=== PATIENT | female | born 1955 | race Caucasian/White ===

== ENCOUNTER 2019-12-21 15:42 | Outpatient (CLI) | payer BC, SELFPAY ==
[2019-12-21 16:53] LABS: Free T4 Free Thyroxine 0.78 ng/mL (0.78-2.19)
[2019-12-24 06:59] LABS: Triiodothyronine T3 Free 2.7 pg/mL (2.3-4.2)
== END 2019-12-21 15:43 | disposition home or self-care (01) ==
LOC: ANHLAB 15:46
PROVIDERS: PCP Physician Assistant Medical; Visit Provider Internal Medicine Endocrinology, Diabetes & Metabolism
DX: E06.3 Autoimmune thyroiditis (principal)
CPT/HCPCS: 36415; 84439; 84443; 84481

== ENCOUNTER 2020-01-01 10:59 | Outpatient (CLI) | payer BC, SELFPAY ==
--- NOTE | ~2020-01-01 | US_ITS ---
EXAMINATION: US thyroid DATE: 01/01/2020 11:43 INDICATION: Nontoxic single thyroid nodule. TECHNIQUE: Multiple ultrasound images of the thyroid were obtained. COMPARISON: 11/03/2018, 10/08/2017, 10/09/2016, 06/27/2015 and 07/12/2014 FINDINGS: The right thyroid lobe measures 3.9 x 1.6 x 1.2 cm. The left thyroid lobe measures 4.8 x 2.2 x 2.1 c m. No significant interval change since 2014 in a round 7 mm solid hypoechoic nodule at the right si de of the thyroid isthmus (TI-RADS 3, mildly suspicious , FNA if >=2.5 cm, annual followup is >1.5 cm ). There is larger wider than tall, well-defined solid isoechoic nodule without internal echogenic fo ci (TI-RADS 4, moderately suspicious , FNA if >=1.5 cm, annual followup is >1 cm) which measures 1.9 x 1.0 x 1.9 cm not significantly changed in size since 10/08/2017 at which time it measured 1.8 x 1.8 x 1.3 cm. Smaller similar-appearing solid nodule at the isthmus measuring 1.4 x 0.8 x 0.8 cm unchange d since 10/09/2016. In the left thyroid lobe there are a couple wider than tall, well-defined solid is oechoic nodule without echogenic foci measuring TI-RADS 4 measuring 2.2 cm in maximal diameter and 10 mm in maximal diameter. The larger is unchanged since the prior study with earlier biopsy on 4 demonstrating pathology consistent with benign follicular nodule . Similar appearing solid TI-RADS 4 nodule at the right thyroid measuring 1.5 cm in maximal diameter, decreased from 1.9 cm on 06/27/20 15 at which time it demonstrated a central cystic component. IMPRESSION: 1. Multiple stable thyroid nodules. Consider thyroid ultrasound in 2 years. Reviewed, dictated and finalized at location A. FING [facility]
== END 2020-01-01 11:00 | disposition home or self-care (01) ==
PROVIDERS: PCP Physician Assistant Medical; Visit Provider Internal Medicine Endocrinology, Diabetes & Metabolism
DX: E04.1 Nontoxic single thyroid nodule (principal)
CPT/HCPCS: 76536

== ENCOUNTER 2021-02-06 14:58 | Outpatient (CLI) | payer OTHER, SELFPAY ==
[2021-02-06 17:36] LABS: Free T4 Free Thyroxine 0.89 ng/mL (0.78-2.19)
== END 2021-02-06 14:59 | disposition home or self-care (01) ==
LOC: ANHWCLAB 15:01
PROVIDERS: PCP Physician Assistant Medical; Visit Provider Internal Medicine Endocrinology, Diabetes & Metabolism
DX: E04.1 Nontoxic single thyroid nodule (principal)
CPT/HCPCS: 36415; 84439; 84443

== ENCOUNTER 2022-02-09 09:19 | Outpatient (CLI) | payer OTHER, SELFPAY ==
[2022-02-09 17:02] LABS: Free T4 Free Thyroxine 1.06 ng/mL (0.78-2.19)
== END 2022-02-09 09:20 | disposition home or self-care (01) ==
LOC: ANHWCLAB 09:21
PROVIDERS: PCP Physician Assistant Medical; Visit Provider Internal Medicine Endocrinology, Diabetes & Metabolism
DX: E04.1 Nontoxic single thyroid nodule (principal); Z78.0 Asymptomatic menopausal state
CPT/HCPCS: 36415; 84439; 84443

== ENCOUNTER 2024-10-10 18:55 | Emergency (ER) | payer OTHER, MEDICARE, SELFPAY ==
--- NOTE | ~2024-10-10 | XR_ITS ---
XR humerus RT Ordering provider: Ruslan Stacy APRN History: . 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 Comparison: None. FINDINGS: BONES: No acute fracture or dislocation. JOINT SPACES: Osteoarthritic changes of the acromioclavicular joint. Glenohumeral joint is normal. SOFT TISSUES: Normal. IMPRESSION: No acute osseous abnormality right humerus. Reviewed, dictated and finalized at location A. COORDINATOR
--- NOTE | 2024-10-10 19:02 | ED_ITS ---
HPI - Extremity Injury (Upper) General Chief Complaint: Extremity Injury, Upper Stated Complaint: Injured Right Arm Time Seen by Provider: 10/10/24 18:57 Source: patient Mode of arrival: ambulatory Limitations: no limitations History of Present Illness HPI narrative: Kesha is a 68-year-old female patient presenting to the clinic today with complaints of right upper arm injury. 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 States she was lifting a tote and throwing it with her body turned sideways and injured her her right upper arm. Is having pain with range of motion to the right upper arm. He she is able to extend and flex the elbow but she is unable to lift her upper arm. When pointing to the pain she points to the mid humerus anteriorly Related Data Home Medications Medication Instructions Recorded Confirmed multivitamin 1 tablet PO DAILY 02/06/21 10/10/24 turmeric 400 mg capsule 400 mg PO DIRECTED 02/06/21 10/10/24 Allergies Allergy/AdvReac Type Severity Reaction Status Date / Time adhesive tape Allergy Unknown Redness of Verified 10/10/24 19:28 Skin Review of Systems Review of Systems: Pertinent positives per HPI. Patient denies any fever, chills, rash, headache, visual changes, dizziness, cough, runny nose, sore throat, shortness of breath, chest pain, palpitations, nausea, vomiting, diarrhea, constipation, abdominal pain, or any urinary issues. 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 Surgical History Surgical History H/O oophorectomy (1981) ovary and tumor History of cholecystectomy (1985) History of right knee surgery (02/03/11) arthroscopic partial medial meniscectomy; arthroscopic chondroplasty of patellofemoral joint History of surgical removal of ganglion cyst foot - 2021; finger - 2018 Family History Family History Mother Family history of obesity Family history of arthritis Hypertension Father Family history of cataracts Family history of Alzheimer's disease Family history of diabetes mellitus in first degree relative Family history of malignant melanoma Other Depression Social History Social History Social History: 08/21/24 very confident with medical forms Smoking status: Never smoker Alcohol intake: never Substance use: never Substance use type: does not use Do You Feel Safe in your Home?: Yes Lack of Transportation: No Lack of Food: Sometimes True Current Housing: I Have Housing Concerned About Future Housing: No Difficulty Paying Gas/Electric Bills: No Difficulty Paying for Meds: No Currently Unemployed: No Education: High School Diploma/GED Difficulty w/ Childcare or Family Care: No Living arrangements: with family Occupation/Education: occupation 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 There is no relevant family history pertinent to the patient complaint. Exam Narrative: General: Well-developed, well nourished, in no apparent distress Head: Normocephalic, atraumatic. Cardio: Regular rate and rhythm, s1 and s2 normal, no murmur appreciated. Resp: Clear to auscultation bilaterally, no rhonchi, rales, wheezing or rubs. Musculoskeletal: No deformity, tender to palpation over the right anterior humerus with pain radiating up towards the shoulder. Unable to lift up the right upper arm into any kind of range of motion without severe pain. Is able to extend and flex the elbow without pain. Is able to flex the biceps musculature against resistance but this causes pain. Peripheral pulse strong, no edema, no cyanosis, normal gait and station Course Course Emergency Course: Portions of this record may have been created with voice recognition software. Level of Care: Express Care Visit Vital Signs Vital signs: Vital Signs Temperature 36.4 C 10/10/24 19:03 Pulse Rate 72 10/10/24 19:03 Respiratory Rate 16 10/10/24 19:03 Blood Pressure 136/70 10/10/24 19:03 Pulse Oximetry 99 10/10/24 19:03 Temperature 36.4 C 10/10/24 19:04 Pulse Rate 72 10/10/24 19:04 Respiratory Rate 16 10/10/24 19:04 Blood Pressure 136/70 10/10/24 19:04 Pulse Oximetry 99 10/10/24 19:04 Vital signs reviewed MDM - Extremity Injury (Upper) MDM Narrative Medical decision making narrative: At the time of visit patient is resting comfortably on the exam table. Patient appears to be nontoxic. Diagnostics: X-ray of the humerus is negative for any sign of fracture or malalignment. Plan: I suspect patient has a bicep strain/muscle tear/or tendon injury. Recommend wearing an arm sling for 1 week and have a follow-up with her PCP/occupational medicine provider. Supportive measures were discussed with the patient and they voiced understanding discharge instructions and agrees to treatment plan. Return precautions reviewed Differential Diagnosis Differential diagnosis: Likely fracture of humerus and other (Bicep strain, biceps tear, soft tissue injury) Discharge Plan Discharge Clinical Impression: Strain of right biceps brachii muscle or tendon Patient Disposition: Home, Self-Care Condition: Stable Instructions: Antibiotic Form, Muscle Strain (ED) Additional Instructions: X-ray of the right humerus is negative for any sign of fracture or malalignment. I suspect you have a biceps muscle/tendon strain verses a biceps muscle tear. Rest, ice, elevate, and wear arm sling as directed May take Tylenol as needed for pain Continue taking meloxicam as prescribed May apply Aspercreme, blue emu, or lidocaine over the affected area No use of the right arm x1 week Follow up with your PCP or Occupational Medicine provider in 5-7 days. If symptoms persist may need a ultrasound of the biceps muscle to determine if there is a biceps muscle tear/tendon injury. May also need PT evaluation Prescriptions: No Action multivitamin Tablet 1 tablet PO DAILY turmeric 400 mg capsule 400 mg PO DIRECTED meloxicam 15 mg tablet 15 mg PO DAILY Qty: 90 0RF metformin 500 mg tablet extended release 24 hr 500 mg PO BID Qty: 180 0RF Follow-up/Referrals: Anastasia Sanchez PA-C [Primary Care Provider] - Stand Alone Forms: Work/School Release IP Time of Disposition: 19:32 Quality NIHSS Nursing Documentation ED NIHSS nursing documentation: reviewed/agree
[2024-10-10 19:03] VITALS: BP 136/70; PULSE 72; RESP 16; TEMP 36.4; O2SAT 99
[2024-10-10 19:04] VITALS: BP 136/70; PULSE 72; RESP 16; TEMP 36.4; O2SAT 99
== END 2024-10-10 19:42 | disposition home or self-care (01) ==
PROVIDERS: Emergency Provider Nurse Practitioner Family; PCP Physician Assistant Medical
DX: S46.211A Strain of muscle, fascia and tendon of other parts of biceps, right arm, initial encounter (principal); X50.0XXA Overexertion from strenuous movement or load, initial encounter; Y99.0 Civilian activity done for income or pay; M19.90 Unspecified osteoarthritis, unspecified site; E06.3 Autoimmune thyroiditis
CPT/HCPCS: 73060; 99213; A4565; G0463